=== PATIENT | male | born 1940 | race Caucasian/White ===

== ENCOUNTER → 2016-11-06 | Outpatient (CLI) | payer MEDICARE, BC ==
[~2016-11-06] MED LIST: CARV25TA12 PO; RAMI10CA PO
== END | disposition home or self-care (01) ==
LOC: SUSANVILLE 13:00
PROVIDERS: ATTEND Internal Medicine Cardiovascular Disease
DX: I08.1 Rheumatic disorders of both mitral and tricuspid valves (principal)
CPT/HCPCS: 93306

== ENCOUNTER → 2018-06-17 | Outpatient (CLI) | payer MEDICARE, BC ==
[~2018-06-17] MED LIST changes: -RAMI10CA PO; +RAMI10CA59 PO; +REGADENOSON 0.4 MG/5 ML SYRINGE ONE
== END | disposition home or self-care (01) ==
LOC: CFH 11:55
PROVIDERS: ATTEND Internal Medicine Cardiovascular Disease
DX: Z01.818 Encounter for other preprocedural examination (principal); I44.7 Left bundle-branch block, unspecified
CPT/HCPCS: 78452; 93017; A9502; J2785

== ENCOUNTER 2019-01-31 09:27 | Outpatient (CLI) | payer MEDICARE, BC | END 2019-01-31 23:59 | disposition home or self-care (01) | LOC: CVU 09:27 | PROVIDERS: ATTEND Internal Medicine Cardiovascular Disease | DX: I34.0 Nonrheumatic mitral (valve) insufficiency (principal); I44.7 Left bundle-branch block, unspecified; I51.7 Cardiomegaly | CPT/HCPCS: 0399T; 93306 ==

== ENCOUNTER → 2020-08-12 | Outpatient (CLI) | payer MEDICARE, BC ==
[~2020-08-12] MED LIST changes: -REGADENOSON 0.4 MG/5 ML SYRINGE ONE
== END | disposition home or self-care (01) ==
LOC: CFH 10:28
PROVIDERS: ATTEND Internal Medicine Cardiovascular Disease
DX: I36.1 Nonrheumatic tricuspid (valve) insufficiency (principal); I42.8 Other cardiomyopathies; I44.7 Left bundle-branch block, unspecified; I51.7 Cardiomegaly
CPT/HCPCS: 93306